=== PATIENT | male | born 1970 | race Caucasian/White ===

== ENCOUNTER 2021-06-16 06:46 | Outpatient (CLI) | payer BC, SELFPAY ==
[2021-06-16 07:26] VITALS: BP 125/79; PULSE 65; RESP 18; TEMP 36.6; O2SAT 97; BMI 43.4
[2021-06-16 07:44] VITALS: BP 119/78; PULSE 71; RESP 18; O2SAT 97
[2021-06-16 08:34] VITALS: BP 118/79; PULSE 72; RESP 20; TEMP 36.6; O2SAT 96
== END 2021-06-16 06:47 | disposition home or self-care (01) ==
LOC: OPS 06:49
PROVIDERS: PCP Family Medicine; Visit Provider Family Medicine
DX: U07.1 COVID-19 (principal)
CPT/HCPCS: 96365